=== PATIENT | female | born 1965 | race Caucasian/White ===

== ENCOUNTER → 2020-12-20 14:29 | Outpatient (CLI) | payer OTHER, SELFPAY ==
--- NOTE | ~2020-12-20 | MR_ITS ---
EXAMINATION: MR knee LT wo con DATE: 12/20/2020 15:43 INDICATION: Left knee pain. TECHNIQUE: Magnetic resonance imaging (MRI) of the left knee was performed without intravenous contra st. Sequences included axial PD-weighted FS FSE, coronal PD-weighted FSE and PD-weighted FS FSE, sagi ttal PD-weighted FSE, and sagittal T2-weighted FS FSE. COMPARISON: Left knee radiographs 09/24/2020 FINDINGS: Medial compartment: There is a radial tear of posterior horn of medial meniscus. There is partial-thickness cartilage los s of tibial condyle, deep at the central articular surface. There is partial-thickness cartilage loss of femoral condyle, deep at the central articular surface. Marginal osteophytes are noted. Lateral compartment: The lateral meniscus is normal. There is shallow partial-thickness cartilage loss of tibial condyle a nd femoral condyle. There are tiny marginal osteophytes. Patellofemoral compartment: There is deep partial thickness cartilage loss of patellar medial facet and median ridge and shallow partial-thickness cartilage loss of patellar lateral facet. There is shallow partial-thickness cartil age loss of trochlea. Osteophytes are noted. Ligaments and tendons: The anterior and posterior cruciate ligaments are normal. Medial collateral ligament demonstrates a s prain characterized by thickening and increased signal intensity proximally and surrounding edema. Th ere are changes of prior sprain of fibular collateral ligament characterized by thickening and increa sed signal intensity proximally. There is edema around medial collateral ligament. There is mild hall llar tendinopathy. Fluid: There is a small knee joint effusion. There is mild prepatellar and superficial infrapatellar bursiti s. IMPRESSION: 1. Moderate chondrosis of medial and patellofemoral compartments and mild chondrosis of lateral britney rtment. 2. Tear of medial meniscus. 3. Small knee joint effusion. 4. Grade 2 sprain of medial collateral ligament. Reviewed, dictated and finalized at location A. IMPRESSION: 1. Moderate chondrosis of medial and patellofemoral compartments and mild chond rosis of lateral compartment. 2. Tear of medial meniscus. 3. Small knee joint effusion. 4. Grade 2 sprain of medial collateral ligament.
== END ==
PROVIDERS: PCP Family Medicine; Visit Provider Orthopaedic Surgery
DX: M70.52 Other bursitis of knee, left knee (principal); S83.242A Other tear of medial meniscus, current injury, left knee, initial encounter; S83.402A Sprain of unspecified collateral ligament of left knee, initial encounter
CPT/HCPCS: 73721

== ENCOUNTER 2022-12-14 17:25 | Emergency (ER) | payer OTHER, SELFPAY ==
[2022-12-14 17:36] VITALS: BP 151/77; PULSE 127; RESP 16; TEMP 38.3; O2SAT 98
--- NOTE | 2022-12-14 17:37 | ED.URI ---
HPI - URI/Sore Throat General Chief Complaint: Upper Respiratory Infection Stated Complaint: CONGESTION/DRAINAGE/TIRED Time Seen by Provider: 12/14/22 17:37 Source: patient Mode of arrival: ambulatory Limitations: no limitations History of Present Illness HPI Narrative: patient is a 49-year-old female that presents with cough, congestion, fatigue and fever intermittently for 3 weeks. Patient has tried Mucinex with little to no relief along with 2 doses of Claritin and 1 dose of Zyrtec. Patient states she thinks she has seasonal allergies but does not take anything regularly. Patient has 2 3-year-old granddaughters that have pinkeye and sinus congestion as well. Denies any nausea, vomiting, diarrhea, sore throat, ear pain. Denies any history of asthma, COPD, pneumonia. Related Data Allergies Allergy/AdvReac Type Severity Reaction Status Date / Time meperidine Allergy Intermediate RED/HIVES/W Verified 12/14/22 17:33 ELTS codeine Allergy Mild NAUSEA AND Verified 12/14/22 17:33 VOMITING Penicillins Allergy Mild RASH Verified 12/14/22 17:33 pseudoephedrine Allergy Mild NAUSEA AND Verified 12/14/22 17:33 VOMITING LOW FAT CREAM CHEESE Allergy Mild VIOLENT Uncoded 12/14/22 17:33 REACTION THAT MIMICKED TOXIC SHOCK SYNDROME MOST PAIN MEDICATION Allergy Mild NAUSEA AND Uncoded 12/14/22 17:33 VOMITING Review of Systems Review of Systems: All systems reviewed & are unremarkable except as noted in HPI and below Constitutional: Constitutional: Denies body ache(s), Denies chills, Reports fatigue, Reports fever(s), Denies headache(s), Denies malaise and Denies weakness Eyes: Eyes: Denies blurry vision, Denies itchy eyes and Denies loss of vision ENT: Denies otalgia, Denies headache(s), Reports nasal congestion, Denies sinus pain and Denies sore throat Cardiovascular: Cardiovascular: Denies chest pain, Denies irregular heart rhythm and Denies dyspnea Respiratory: Respiratory: Reports cough and Denies dyspnea Gastrointestinal: Gastrointestinal: Denies abdominal pain, Denies diarrhea, Denies nausea and Denies vomiting Musculoskeletal: Musculoskeletal: Denies back pain, Denies myalgias and Denies arthralgias Integumentary/Breasts: Skin/Breast: Denies pruritus and Denies rash Neurologic: Denies headache(s), Denies loss of vision and Denies weakness Psychiatric: Psychiatric: Reports no additional psychiatric complaints Endocrine: Endocrine: Denies fatigue Allergic/Immunologic: Allergic/Immunologic: Denies itchy eyes PMFSH Past Medical History Medical History Allergies Anxiety Arthritis Arthritis of knee, left Ulcer Surgical History Surgical History H/O: hysterectomy Family History Family History Mother Hypertension Family history of cardiovascular disease Family history of malignant neoplasm, Onset Age: 66 Family history of coronary artery disease Grandparent Family history of cardiovascular disease Father Family history of seizure disorder, Onset Age: 66 Other Family history of malignant neoplasm of breast in first degree relative Social History Social History Smoking status: Never smoker Alcohol intake: never Living arrangements: with family Occupation/Education: retired Gender identity (if verbalized by the patient): Female Comments At time of signature, agree with nursing past medical, surgical, social and family history. There is no relevant family history pertinent to the presenting complaint. Exam Const: General: cooperative, healthy appearing, comfortable, no acute distress and well nourished Nutritional Appearance: well nourished Orientation/consciousness: patient oriented x3 Limitations: no limitations [facility]
== END 2022-12-14 18:05 | disposition home or self-care (01) ==
PROVIDERS: Emergency Provider Nurse Practitioner Family; PCP Clinical Nurse Specialist
DX: J06.9 Acute upper respiratory infection, unspecified (principal); R05.9 Cough, unspecified; M19.90 Unspecified osteoarthritis, unspecified site
CPT/HCPCS: 99213; G0463

== ENCOUNTER 2022-12-17 12:53 | Emergency (ER) | payer OTHER, SELFPAY ==
[2022-12-17 13:03] VITALS: BP 142/98; PULSE 102; RESP 18; TEMP 37.2; O2SAT 100
--- NOTE | 2022-12-17 13:50 | ED.EAR ---
HPI - Ear Problem General Chief complaint: Ear Stated complaint: Pain in ear; was here Saturday for Upper respitory i Time Seen by Provider: 12/17/22 13:45 Source: RN notes reviewed and old records reviewed Mode of arrival: ambulatory Limitations: no limitations History of Present Illness HPI Narrative: 57-year-old female who presents to [facility] with pain in the left ear since yesterday with pressure. Patient was seen in clinic on Saturday 3 days ago for URI symptoms with cough and congestion and was placed on steroid.antibiotic and also inhaler and patient reports she has been taking medication. Patient reports that she has been taking some Antihistamines also for her symptoms along with Tylenol. Patient denies any shortness of breath with respirations even and nonlabored with no tachypnea noted. MD Complaint: ear pain and other (URI symptoms and cough) Location: left ear Discharge from ear: Reports no Treatment prior to arrival: oral analgesic and other (on antibiotics) Related Data Allergies Allergy/AdvReac Type Severity Reaction Status Date / Time meperidine Allergy Intermediate RED/HIVES/W Verified 12/17/22 13:00 ELTS codeine Allergy Mild NAUSEA AND Verified 12/17/22 13:00 VOMITING Penicillins Allergy Mild RASH Verified 12/17/22 13:00 pseudoephedrine Allergy Mild NAUSEA AND Verified 12/17/22 13:00 VOMITING LOW FAT CREAM CHEESE Allergy Mild VIOLENT Uncoded 12/17/22 13:00 REACTION THAT MIMICKED TOXIC SHOCK SYNDROME MOST PAIN MEDICATION Allergy Mild NAUSEA AND Uncoded 12/17/22 13:00 VOMITING Review of Systems Review of Systems: CONSTITUTIONAL: reports malaise, chills, sweats, or fever. EYES: Denies visual changes, redness, or discharge. ENT: Reports rhinorrhea, congestion, sinus pain, left otalgia, no sore throat. CARDIOVASCULAR: Denies chest pain, palpitations, or edema. RESPIRATORY: Reports cough.? Denies dyspnea. GASTROINTESTINAL: Denies abdominal pain, nausea, vomiting, diarrhea SKIN: Denies rash or itching. MUSCULOSKELETAL: Denies myalgia. NEUROLOGIC:reports headache. All systems reviewed & are unremarkable except as noted in HPI and below PMFSH Past Medical History Medical History Allergies Anxiety Arthritis Arthritis of knee, left Ulcer Surgical History Surgical History H/O: hysterectomy Family History Family History Mother Hypertension Family history of cardiovascular disease Family history of malignant neoplasm, Onset Age: 66 Family history of coronary artery disease Grandparent Family history of cardiovascular disease Father Family history of seizure disorder, Onset Age: 66 Other Family history of malignant neoplasm of breast in first degree relative Social History Social History Smoking status: Never smoker Alcohol intake: never Living arrangements: with family Occupation/Education: retired Gender identity (if verbalized by the patient): Female Comments At time of signature, agree with nursing past medical, surgical, social and family history. There is no relevant family history pertinent to the presenting complaint Exam Narrative: GENERAL: Well-appearing, well-nourished, and in no acute distress. HEAD: Normocephalic EYES: PERRLA, conjunctivae clear ENT: Nares clear, turbinates edematous and erythematous, clear discharge. Mucous membranes moist. Left TM red and bulging with some irritation to canal, RightTM pearly levine with dull light reflex bilaterally; no tragal tenderness. Oropharynx erythematous without lesions. Tonsils not enlarged and without exudate, no drooling, no hoarseness, no trismus, uvula midline. NECK: Supple. No lymphadenopathy CHEST: Clear to au
== END 2022-12-17 14:13 | disposition home or self-care (01) ==
PROVIDERS: Emergency Provider Registered Nurse; PCP Internal Medicine
DX: H66.92 Otitis media, unspecified, left ear (principal); H60.92 Unspecified otitis externa, left ear; M19.90 Unspecified osteoarthritis, unspecified site
CPT/HCPCS: 99213; G0463

== ENCOUNTER 2023-09-27 18:00 | Emergency (ER) | payer OTHER, SELFPAY ==
[2023-09-27 18:00] VITALS: BP 138/109; PULSE 90; RESP 18; TEMP 36.9; O2SAT 98
--- NOTE | 2023-09-27 18:13 | ED.GENADULT ---
HPI - General Adult General Chief complaint: Urogenital-Female Stated complaint: Yeast Infection Symptoms Time Seen by Provider: 09/27/23 18:13 Related Data Home Medications Medication Instructions Recorded Confirmed cetirizine 10 mg capsule (Zyrtec) 10 mg PO DAILY PRN Allergy Symptoms 01/15/23 05/10/23 fluticasone propionate 50 2 spray intranasal DAILY 01/15/23 05/10/23 mcg/actuation nasal spray,suspension (Flonase Allergy Relief) Allergies Allergy/AdvReac Type Severity Reaction Status Date / Time codeine Allergy Severe NAUSEA AND Verified 05/10/23 10:31 VOMITING pseudoephedrine Allergy Severe NAUSEA AND Verified 05/10/23 10:31 VOMITING meperidine Allergy Intermediate RED/HIVES/W Verified 02/11/23 15:04 ELTS Penicillins Allergy Mild Hives Verified 05/10/23 10:31 PMFSH Past Medical History Medical History Allergies Anxiety Arthritis Arthritis of knee, left Ulcer Surgical History Surgical History H/O: hysterectomy Family History Family History Mother Hypertension Family history of cardiovascular disease Family history of malignant neoplasm, Onset Age: 66 Family history of coronary artery disease Alcoholism Asthma Cancer Diabetes mellitus Myelofibrosis Grandparent Family history of cardiovascular disease Asthma Cancer Diabetes mellitus Heart disease Father Family history of seizure disorder, Onset Age: 66 Alcoholism Other Family history of malignant neoplasm of breast in first degree relative Social History Social History Smoking status: Never smoker Alcohol intake: current Alcohol use details: rarely Substance use: never Substance use type: does not use Lack of Transportation: No Lack of Food: Never True Current Housing: I Have Housing Concerned About Future Housing: No Difficulty Paying Gas/Electric Bills: No Difficulty Paying for Meds: No Currently Unemployed: No Education: High School Diploma/GED Living arrangements: with family Occupation/Education: retired Gender identity (if verbalized by the patient): Female Spiritual care concerns: No Discharge Plan Discharge Prescriptions: No Action (DME) Aerochamber MV Spacer See Rx Instructions .Route Qty: 1 0RF Rx Instructions: As directed cholecalciferol (vitamin D3) 1,250 mcg (50,000 unit) tablet 1,250 mcg PO WEEKLY Qty: 8 0RF fluticasone propionate [Flonase Allergy Relief] 50 mcg/actuation spray,suspension 2 spray intranasal DAILY Rx Instructions: administer into each nostril Zyrtec 10 mg capsule 10 mg PO DAILY PRN (Reason: Allergy Symptoms) sodium,potassium,mag sulfates [Suprep Bowel Prep Kit] 17.5-3.13-1.6 gram recon soln See Rx Instructions PO .COMPLEX Qty: 354 0RF Rx Instructions: TAKE DIRECTED fluconazole 150 mg tablet 150 mg PO DAILY Qty: 1 0RF Rx Instructions: administer on day 1 of therapy Follow-up/Referrals: Loan Delvalle, [employer] [Primary Care Provider] -
--- NOTE | 2023-09-27 18:36 | ED.GENADULT ---
HPI - General Adult General Chief complaint: Urogenital-Female Stated complaint: Yeast Infection Symptoms Time Seen by Provider: 09/27/23 18:13 Source: patient, RN notes reviewed and old records reviewed Mode of arrival: ambulatory Limitations: no limitations History of Present Illness HPI narrative: 58-year-old female [facility] home for complaint of white creamy patches to mouth and tongue for 2 days and scant amount of vaginal discharge for 3 days. Patient reports being admitted September 16 for diverticulitis DCd on September 18. On date of discharge patient was given Diflucan for vaginal discharge/potential yeast infection. Patient endorses that during hospitalization she was given Cipro and Flagyl and has completed both. Patient endorses that she saw her PCP 3 days ago and was given Diflucan for vaginal discharge. the patient called PCP office today regarding oral and vaginal complaints and was advised to be seen in [facility] as they could not get her into their office today. Patient able to tolerate fluids by mouth. Patient reports allergy to penicillin and codeine. Related Data Home Medications Medication Instructions Recorded Confirmed cetirizine 10 mg capsule (Zyrtec) 10 mg PO DAILY PRN Allergy Symptoms 01/15/23 05/10/23 fluticasone propionate 50 2 spray intranasal DAILY 01/15/23 05/10/23 mcg/actuation nasal spray,suspension (Flonase Allergy Relief) Allergies Allergy/AdvReac Type Severity Reaction Status Date / Time codeine Allergy Severe NAUSEA AND Verified 05/10/23 10:31 VOMITING pseudoephedrine Allergy Severe NAUSEA AND Verified 05/10/23 10:31 VOMITING meperidine Allergy Intermediate RED/HIVES/W Verified 02/11/23 15:04 ELTS Penicillins Allergy Mild Hives Verified 05/10/23 10:31 Review of Systems Review of Systems: All systems reviewed & are unremarkable except as noted in HPI and below Constitutional: Constitutional: Reports no additional constitutional complaints Eyes: Eyes: Reports no additional eye complaints ENT: Reports as per HPI, Reports halitosis and Reports other (white, creamy patches to tongue and oral mucosa) Cardiovascular: Cardiovascular: Reports no additional cardiovascular complaints, Denies chest pain and Denies dyspnea Respiratory: Respiratory: Reports no additional respiratory complaints, Denies cough and Denies dyspnea Genitourinary: Genitourinary: Reports vaginal discharge Musculoskeletal: Musculoskeletal: Reports no additional musculoskeletal complaints Neurologic: Reports system reviewed and no additional complaints, except as documented Psychiatric: Psychiatric: Reports no additional psychiatric complaints PMFSH Past Medical History Medical History Allergies Anxiety Arthritis Arthritis of knee, left Ulcer Surgical History Surgical History H/O: hysterectomy Family History Family History Mother Hypertension Family history of cardiovascular disease Family history of malignant neoplasm, Onset Age: 66 Family history of coronary artery disease Alcoholism Asthma Cancer Diabetes mellitus Myelofibrosis Grandparent Family history of cardiovascular disease Asthma Cancer Diabetes mellitus Heart disease Father Family history of seizure disorder, Onset Age: 66 Alcoholism Other Family history of malignant neoplasm of breast in first degree relative Social History Social History Smoking status: Never smoker Alcohol intake: current Alcohol use details: rarely Substance use: never Substance use type: does not use Lack of Transportation: No Lack of Food: Never True Current Housing: I Have Housing Concerned About Future Housing: No Difficulty Paying Gas/Elec
== END 2023-09-27 18:40 | disposition home or self-care (01) ==
PROVIDERS: Emergency Provider Nurse Practitioner Family; PCP Clinical Nurse Specialist
DX: B37.0 Candidal stomatitis (principal); M17.12 Unilateral primary osteoarthritis, left knee
CPT/HCPCS: 99213; G0463

== ENCOUNTER 2023-10-14 08:17 | Emergency (ER) | payer OTHER, SELFPAY ==
--- NOTE | 2023-10-14 08:19 | ED.EAR ---
HPI - Ear Problem General Chief complaint: Ear Stated complaint: Earache Time Seen by Provider: 10/14/23 08:19 Source: patient Mode of arrival: ambulatory Limitations: no limitations History of Present Illness HPI Narrative: Tari is a 58-year-old female patient presenting to the clinic today with complaints of left ear pain x1 day. She reports has been having URI symptoms for the past week. Coughing up clear phlegm. Denies any fever, chills, chest pain, or shortness of breath Related Data Home Medications Medication Instructions Recorded Confirmed cetirizine 10 mg capsule (Zyrtec) 10 mg PO DAILY PRN Allergy Symptoms 01/15/23 10/14/23 fluticasone propionate 50 2 spray intranasal DAILY 01/15/23 10/14/23 mcg/actuation nasal spray,suspension (Flonase Allergy Relief) mecobalamin (vitamin B12) 500 mcg 500 mcg PO DIRECTED 10/04/23 10/14/23 chewable tablet Allergies Allergy/AdvReac Type Severity Reaction Status Date / Time codeine Allergy Severe NAUSEA AND Verified 10/04/23 08:10 VOMITING pseudoephedrine Allergy Severe NAUSEA AND Verified 10/04/23 08:10 VOMITING meperidine Allergy Intermediate RED/HIVES/W Verified 10/04/23 08:10 ELTS Penicillins Allergy Mild Hives Verified 10/04/23 08:10 Review of Systems Review of Systems: Pertinent positives per HPI. Patient denies any fever, chills, rash, headache, visual changes, dizziness, shortness of breath, chest pain, palpitations, nausea, vomiting, diarrhea, constipation, abdominal pain, or any urinary issues. [facility] Past Medical History Medical History Allergies Anxiety Arthritis Arthritis of knee, left Ulcer Surgical History Surgical History H/O: hysterectomy Family History Family History Mother Hypertension Family history of cardiovascular disease Family history of malignant neoplasm, Onset Age: 66 Family history of coronary artery disease Alcoholism Asthma Cancer Diabetes mellitus Myelofibrosis Grandparent Family history of cardiovascular disease Asthma Cancer Diabetes mellitus Heart disease Father Family history of seizure disorder, Onset Age: 66 Alcoholism Other Family history of malignant neoplasm of breast in first degree relative Social History Social History Smoking status: Never smoker Alcohol intake: current Alcohol use details: rarely Substance use: never Substance use type: does not use Lack of Transportation: No Lack of Food: Never True Current Housing: I Have Housing Concerned About Future Housing: No Difficulty Paying Gas/Electric Bills: No Difficulty Paying for Meds: No Currently Unemployed: No Education: High School Diploma/GED Living arrangements: with family Occupation/Education: retired Gender identity (if verbalized by the patient): Female Spiritual care concerns: No Comments At the time of my signature, I reviewed and agree with the nursing past medical, surgical, social, and family history. There is no relevant family history pertinent to the patient complaint. Exam Narrative: General: Well-developed, well nourished, in no apparent distress Head: Normocephalic, atraumatic Eyes: Pupils equally round and reactive to light bilaterally, EOM intact, sclera and conjunctive clear, no discharge, lids normal Ears: Right TM intact and clear, left TM intact, bulging, red, unable to visualize ossicles, ear canals clear, no drainage, grossly hearing normal. Nose: Nares patent, clear discharge, no inflammation, no sinus tenderness. Mouth: Oral pharynx without lesions or masses, good dentition, MMM. Postnasal drip Neck: Supple, trachea midline, no enlargement of anterior or posterior cervical nodes, no
[2023-10-14 08:26] VITALS: BP 147/106; PULSE 108; RESP 16; TEMP 37.3; O2SAT 97
== END 2023-10-14 08:56 | disposition home or self-care (01) ==
PROVIDERS: Emergency Provider Nurse Practitioner Family; PCP Clinical Nurse Specialist
DX: H66.3X2 Other chronic suppurative otitis media, left ear (principal); J06.9 Acute upper respiratory infection, unspecified; M19.90 Unspecified osteoarthritis, unspecified site; M17.12 Unilateral primary osteoarthritis, left knee
CPT/HCPCS: 99213; G0463

== ENCOUNTER 2023-10-16 14:39 | Outpatient (CLI) | payer OTHER, SELFPAY ==
--- NOTE | ~2023-10-16 | MM_ITS ---
EXAMINATION: MM screening [facility] BI w ingrid HISTORY: Screening mammogram TECHNIQUE: Craniocaudal and mediolateral oblique 3-D tomosynthesis images were obtained and synthetic 2-D images were generated. CAD analysis was submitted and interpreted. COMPARISON: September 20, 2016 bilateral diagnostic mammogram September 14, 2016 bilateral screening mammogram BREAST PARENCHYMAL COMPOSITION: The breasts are heterogeneously dense, which may obscure small masses . FINDINGS: Scattered bilateral benign calcifications. Possible architectural distortion is suggested in each breast.. Bilateral diagnostic mammography is r ecommended, with ultrasound if required. IMPRESSION: 1. Possible bilateral architectural distortion 2. Bilateral diagnostic mammography is recommended, with ultrasound if required BI-RADS Category 0: Incomplete: Needs additional imaging evaluation. Reviewed, dictated and finalized at location A.
== END 2023-10-16 14:40 | disposition home or self-care (01) ==
LOC: ANHIMG 14:41
PROVIDERS: PCP Clinical Nurse Specialist; Visit Provider Clinical Nurse Specialist
DX: Z12.31 Encounter for screening mammogram for malignant neoplasm of breast (principal); R92.8 Other abnormal and inconclusive findings on diagnostic imaging of breast
CPT/HCPCS: 77063; 77067

== ENCOUNTER 2023-11-08 12:21 | Outpatient (CLI) | payer OTHER, SELFPAY ==
--- NOTE | ~2023-11-08 | MMUS_ITS ---
EXAMINATION: MM diagnostic [facility] BI w ingrid, US breast BI complete HISTORY: Follow-up breast asymmetries TECHNIQUE: Additional 3-D tomosynthesis images of the breasts were performed and synthetic 2-D images were generated. CAD analysis was submitted and interpreted. High resolution complete bilateral breas t ultrasound was performed. COMPARISON: 10/16/2023 BREAST PARENCHYMAL COMPOSITION: Dense: The breasts are heterogeneously dense, which may obscure small masses FINDINGS: MAMMOGRAPHIC FINDINGS: There are no suspicious masses, calcifications or architectural distortion in either breast to sugges t malignancy. Bilateral breast asymmetries are less apparent with spot compression views. ULTRASOUND: Complete bilateral US of all 4 quadrants of the breasts and retroareolar region was reviewed. Right breast: There are mildly prominent ducts. At 9:00, 8 cm from the nipple there is an oval hypoec hoic mass measuring 5 mm with slightly irregular margins, low level internal echoes, posterior acoust ic enhancement, parallel orientation and no posterior features. No internal vascularity. Left breast: At 1:00, 11 cm from the nipple, there is a hypoechoic structure measuring 6 mm with echo genic hilum, consistent with a benign intramammary lymph node. At 1:00, 3 cm from the nipple, there i s an oval hypoechoic parallel oriented mass without posterior features or internal vascularity measur ing 8 mm. At 1:00, 2 cm from the nipple, there is an oval hypoechoic mass with parallel orientation, no posteri or features and peripheral vascularity measuring 7 mm. At 3:00, 2 cm from the nipple there are 2 kristie [address] cysts measuring 5 mm or less. There is also a 6 mm lymph node. IMPRESSION: 1. Probable benign bilateral breast masses. 2. Recommend 6 month follow-up diagnostic bilateral mammogram and bilateral breast ultrasound. BI-RADS category 3, probably benign findings. Reviewed, dictated and finalized at location A. IMPRESSION: 1. Probable benign bilateral breast masses. 2. Recommend 6 month follow-up diagnostic bilateral mammogram and bilateral glen ast ultrasound. BI-RADS category 3, probably benign findings.
== END 2023-11-08 12:22 | disposition home or self-care (01) ==
LOC: ANHIMG 12:25
PROVIDERS: PCP Clinical Nurse Specialist; Visit Provider Clinical Nurse Specialist
DX: R92.8 Other abnormal and inconclusive findings on diagnostic imaging of breast (principal)
CPT/HCPCS: 76641; 77062; 77066; G0279

== ENCOUNTER 2023-11-14 08:36 | Emergency (ER) | payer OTHER, SELFPAY ==
[2023-11-14 08:48] VITALS: BP 141/96; PULSE 115; RESP 16; TEMP 37.1; O2SAT 97
--- NOTE | 2023-11-14 08:49 | ED.URI ---
HPI - URI/Sore Throat General Chief Complaint: Upper Respiratory Infection Stated Complaint: SINUS CONGESTION/EAR/EYE REDNESS Time Seen by Provider: 11/14/23 08:49 Source: patient Mode of arrival: ambulatory Limitations: no limitations History of Present Illness HPI Narrative: 58 y/o female presented for c/o left ear pressure, scratchy eyes watery and sinus congestion with post nasal drainage and cough. Onset over one week. Reports crusted eyes the last 2 days, with clear drainage throughout the day. Took Mucinex. Also took increased dose of Zyrtec and Flonase x5 days as previously instructed by PCP if she develops allergy symptoms. Related Data Home Medications Medication Instructions Recorded Confirmed cetirizine 10 mg capsule (Zyrtec) 10 mg PO DAILY PRN Allergy Symptoms 01/15/23 11/14/23 fluticasone propionate 50 2 spray intranasal DAILY 01/15/23 11/14/23 mcg/actuation nasal spray,suspension (Flonase Allergy Relief) mecobalamin (vitamin B12) 500 mcg 500 mcg PO DIRECTED 10/04/23 11/14/23 chewable tablet Allergies Allergy/AdvReac Type Severity Reaction Status Date / Time codeine Allergy Severe NAUSEA AND Verified 11/14/23 08:45 VOMITING pseudoephedrine Allergy Severe NAUSEA AND Verified 11/14/23 08:45 VOMITING meperidine Allergy Intermediate RED/HIVES/W Verified 11/14/23 08:45 ELTS Penicillins Allergy Mild Hives Verified 11/14/23 08:45 Review of Systems Review of Systems: CONSTITUTIONAL: Denies malaise, chills, or fever. EYES: Denies visual changes, redness, or discharge. ENT: Denies sinus pain, and sore throat. Reports ear pain,rhinorrhea, congestion CARDIOVASCULAR: Denies chest pain, palpitations, or edema. RESPIRATORY: Denies dyspnea. GASTROINTESTINAL: Denies abdominal pain, nausea, vomiting, diarrhea SKIN: Denies rash or itching. MUSCULOSKELETAL: Denies myalgia. NEUROLOGIC: Denies headache. All systems reviewed & are unremarkable except as noted in HPI and below PMFSH Past Medical History Medical History Allergies Anxiety Arthritis Arthritis of knee, left Ulcer Surgical History Surgical History H/O: hysterectomy Family History Family History Mother Hypertension Family history of cardiovascular disease Family history of malignant neoplasm, Onset Age: 66 Family history of coronary artery disease Alcoholism Asthma Cancer Diabetes mellitus Myelofibrosis Grandparent Family history of cardiovascular disease Asthma Cancer Diabetes mellitus Heart disease Father Family history of seizure disorder, Onset Age: 66 Alcoholism Other Family history of malignant neoplasm of breast in first degree relative Social History Social History Smoking status: Never smoker Alcohol intake: current Alcohol use details: rarely Substance use: never Substance use type: does not use Lack of Transportation: No Lack of Food: Never True Current Housing: I Have Housing Concerned About Future Housing: No Difficulty Paying Gas/Electric Bills: No Difficulty Paying for Meds: No Currently Unemployed: No Education: High School Diploma/GED Living arrangements: with family Occupation/Education: retired Gender identity (if verbalized by the patient): Female Spiritual care concerns: No Comments At time of signature, agree with nursing past medical, surgical, social and family history. There is no relevant family history pertinent to the presenting complaint Exam Narrative: GENERAL: mildly ill-appearing, well-nourished, and in no acute distress. EYES: PERRLA, conjunctivae clear ENT: Nares clear. Mucous membranes moist. Right TM pearly levine with dull light reflex; left TM erythematous, purulent effusion, bulgi
== END 2023-11-14 09:13 | disposition home or self-care (01) ==
PROVIDERS: Emergency Provider Nurse Practitioner Family; PCP Clinical Nurse Specialist
DX: H66.92 Otitis media, unspecified, left ear (principal); J30.9 Allergic rhinitis, unspecified; M17.12 Unilateral primary osteoarthritis, left knee
CPT/HCPCS: 99213; G0463

== ENCOUNTER 2023-12-05 15:38 | Emergency (ER) | payer OTHER, SELFPAY ==
[2023-12-05 15:59] VITALS: BP 125/92; PULSE 116; RESP 16; TEMP 36.9; O2SAT 99
--- NOTE | 2023-12-05 16:05 | ED.URI ---
HPI - URI/Sore Throat General Chief Complaint: Ear Stated Complaint: Ear Pain/Sore Throat Time Seen by Provider: 12/05/23 16:05 Source: patient, RN notes reviewed and old records reviewed Mode of arrival: ambulatory Limitations: no limitations History of Present Illness HPI Narrative: 58-year-old female presents to the [facility] with complaints of left ear pain and sore throat. Patient has a history of chronic eustachian tube dysfunction as well as chronic effusions. Has had a couple of ear infections in the last few months. Patient has seen Dr. Tam ENT in the past. Reports having an appointment on 15 December Reviewed puffs medical chart Related Data Home Medications Medication Instructions Recorded Confirmed cetirizine 10 mg capsule (Zyrtec) 10 mg PO DAILY PRN Allergy Symptoms 01/15/23 12/05/23 fluticasone propionate 50 2 spray intranasal DAILY 01/15/23 12/05/23 mcg/actuation nasal spray,suspension (Flonase Allergy Relief) mecobalamin (vitamin B12) 500 mcg 500 mcg PO DIRECTED 10/04/23 12/05/23 chewable tablet Allergies Allergy/AdvReac Type Severity Reaction Status Date / Time codeine Allergy Severe NAUSEA AND Verified 12/05/23 15:58 VOMITING pseudoephedrine Allergy Severe NAUSEA AND Verified 12/05/23 15:58 VOMITING meperidine Allergy Intermediate RED/HIVES/W Verified 12/05/23 15:58 ELTS Penicillins Allergy Mild Hives Verified 12/05/23 15:58 Review of Systems Review of Systems: All systems reviewed & are unremarkable except as noted in HPI and below Constitutional: Constitutional: Reports no additional constitutional complaints Eyes: Eyes: Reports no additional eye complaints ENT: Reports as per HPI Cardiovascular: Cardiovascular: Reports no additional cardiovascular complaints, Denies chest pain and Denies dyspnea Respiratory: Respiratory: Reports no additional respiratory complaints, Denies chest congestion, Denies cough and Denies dyspnea Gastrointestinal: Gastrointestinal: Reports no additional gastrointestinal complaints, Denies abdominal pain, Denies nausea and Denies vomiting Musculoskeletal: Musculoskeletal: Reports no additional musculoskeletal complaints Integumentary/Breasts: Skin/Breast: Reports system reviewed and no additional complaints, except as docu Neurologic: Reports system reviewed and no additional complaints, except as documented Psychiatric: Psychiatric: Reports no additional psychiatric complaints Allergic/Immunologic: Allergic/Immunologic: Reports no additional allergic/immunologic complaints PMFSH Past Medical History Medical History Allergies Anxiety Arthritis Arthritis of knee, left Ulcer Surgical History Surgical History H/O: hysterectomy Family History Family History Mother Hypertension Family history of cardiovascular disease Family history of malignant neoplasm, Onset Age: 66 Family history of coronary artery disease Alcoholism Asthma Cancer Diabetes mellitus Myelofibrosis Grandparent Family history of cardiovascular disease Asthma Cancer Diabetes mellitus Heart disease Father Family history of seizure disorder, Onset Age: 66 Alcoholism Other Family history of malignant neoplasm of breast in first degree relative Social History Social History Smoking status: Never smoker Alcohol intake: current Alcohol use details: rarely Substance use: never Substance use type: does not use Lack of Transportation: No Lack of Food: Never True Current Housing: I Have Housing Concerned About Future Housing: No Difficulty Paying Gas/Electric Bills: No Difficulty Paying for Meds: No Currently Unemployed: No Education: High School Diploma/GED Living arrangements:
== END 2023-12-05 16:33 | disposition home or self-care (01) ==
PROVIDERS: Emergency Provider Nurse Practitioner; PCP Clinical Nurse Specialist
DX: R09.82 Postnasal drip (principal); J00 Acute nasopharyngitis [common cold]; H65.05 Acute serous otitis media, recurrent, left ear; M17.12 Unilateral primary osteoarthritis, left knee
CPT/HCPCS: 99211; G0463

== ENCOUNTER 2023-12-20 17:06 | Outpatient (CLI) | payer OTHER, SELFPAY ==
--- NOTE | ~2023-12-20 | CT_ITS ---
EXAMINATION: CT sinus wo con DATE: 12/20/2023 17:24 INDICATION: Recurrent sinusitis for one to 2 years TECHNIQUE: Computed tomography (CT) of the paranasal sinuses was performed without contrast. Iterativ e reconstruction technique was employed. Exam dose: 337.11 mGy-cm total exam DLP. COMPARISON: None FINDINGS: There is prominent rightward deviation of the nasal septum. There is moderate soft tissue s welling of the nasal turbinates, especially of the left middle nasal turbinate. There is opacification of maxillary ostium and infundibulum bilaterally. There is severe mucoperioste al thickening of both maxillary sinuses, patchy soft tissue thickening of the ethmoid air cells prima rily on the left. Moderately prominent mucoperiosteal thickening of the right sphenoid sinus and minimal mucoperiosteal thickening at the left sphenoid sinus. Patchy effusions of the mastoid air cells, more prominent on the left. Middle and inner ear apparatus appear unremarkable bilaterally. IMPRESSION: Prominent rightward deviation of nasal septum Moderate soft tissue swelling of the nasal turbinates, particularly left middle nasal turbinate Opacification of the maxillary ostium and infundibulum bilaterally Prominent bilateral maxillary sinus mucoperiosteal thickening Patchy soft tissue thickening of the left ethmoid air cells primarily Bilateral mucoperiosteal thickening of the sphenoid sinuses, moderate on the right, minimal on the le ft Patchy mastoid effusions, greater on the left Reviewed, dictated and finalized at [facility]. Reviewed, dictated and finalized at [facility]. IMPRESSION: Prominent rightward deviation of nasal septum Moderate soft tissue swelling of the nasal turbinates, particularly left middle nasal turbinate Opacification of the maxillary ostium and infundibulum bilaterally Prominent bilateral maxillary sinus mucoperiosteal thickening Patchy soft tissue thickening of the left ethmoid air cells primarily Bilateral mucoperiosteal thickening of the sphenoid sinuses, moderate on the ri ght, minimal on the left Patchy mastoid effusions, greater on the left
== END 2023-12-20 17:07 | disposition home or self-care (01) ==
LOC: ANHIMG 17:07
PROVIDERS: PCP Internal Medicine; Visit Provider Otolaryngology
DX: J34.2 Deviated nasal septum (principal); J34.89 Other specified disorders of nose and nasal sinuses; J01.01 Acute recurrent maxillary sinusitis; H65.492 Other chronic nonsuppurative otitis media, left ear; H92.02 Otalgia, left ear
CPT/HCPCS: 70486

== ENCOUNTER 2024-01-09 05:49 | Day surgery (SDC) | payer OTHER, SELFPAY ==
[2023-12-12 14:25] VITALS: BMI 35.9
[2024-01-02 12:03] VITALS: BMI 35.2
[2024-01-09 06:37] VITALS: BMI 34.5
--- NOTE | 2024-01-09 07:07 | PM.HPGS ---
History of Present Illness History of Present Illness Consent: Risks, benefits, and alternatives have been discussed and questions answered. Patient agrees to proceed with procedure. Chief complaint: neoplasia screening Narrative: Tari Voss is a 58 year old female presents for screening colonoscopy. Patient's current weight appetite and bowel movements are normal. She denies abdominal pain. Patient has had no bleeding. Family history noncontributory. Previous colonoscopy in 2016 revealed diverticulosis. Patient referred today for screening colonoscopy.. Patient does have a grandparent with colon cancer but no first-degree relatives with polyps nor cancer. Review of Systems Review of Systems: All systems reviewed & are unremarkable except as noted in HPI and below PMFSH Past Medical History Medical History (Updated 01/09/24 @ 07:10 by South Oliveira MD) Allergies Anxiety Arthritis Arthritis of knee, left Screening for colon cancer Ulcer Surgical History Surgical History H/O: hysterectomy Family History Family History Mother Hypertension Family history of cardiovascular disease Family history of malignant neoplasm, Onset Age: 66 Family history of coronary artery disease Alcoholism Asthma Cancer Diabetes mellitus Myelofibrosis Grandparent Family history of cardiovascular disease Asthma Cancer Diabetes mellitus Heart disease Father Family history of seizure disorder, Onset Age: 66 Alcoholism Other Family history of malignant neoplasm of breast in first degree relative Social History Social History Smoking status: Never smoker Alcohol intake: never Alcohol use details: rarely Substance use: never Substance use type: does not use Lack of Transportation: No Lack of Food: Never True Current Housing: I Have Housing Concerned About Future Housing: No Difficulty Paying Gas/Electric Bills: No Difficulty Paying for Meds: No Currently Unemployed: No Education: High School Diploma/GED Living arrangements: with family Occupation/Education: retired Gender identity (if verbalized by the patient): Female Spiritual care concerns: No Meds Home Medications and Allergies Home Medications Medication Instructions Recorded Confirmed Type cetirizine 10 mg capsule (Zyrtec) 10 mg PO DAILY PRN Allergy Symptoms 01/15/23 01/09/24 History fluticasone propionate 50 2 spray intranasal DAILY 01/15/23 01/09/24 History mcg/actuation nasal spray,suspension (Flonase Allergy Relief) cholecalciferol (vitamin D3) 1,250 1,250 mcg PO WEEKLY #8 tabs 01/28/23 01/09/24 Rx mcg (50,000 unit) tablet mecobalamin (vitamin B12) 500 mcg 500 mcg PO DIRECTED 10/04/23 01/09/24 History chewable tablet Allergies Allergy/AdvReac Type Severity Reaction Status Date / Time codeine Allergy Severe NAUSEA AND Verified 01/09/24 06:33 VOMITING pseudoephedrine Allergy Severe NAUSEA AND Verified 01/09/24 06:33 VOMITING meperidine Allergy Intermediate RED/HIVES/W Verified 01/09/24 06:33 ELTS Penicillins Allergy Mild Hives Verified 01/09/24 06:33 Exam Narrative: Physical exam reveals patient to be alert. Vital signs stable. HEENT exam is unremarkable. Patient is anicteric. Lungs are clear to auscultation and to percussion. Heart is without murmur or extra sounds. Abdomen bowel sounds are present soft nontender with no organomegaly. Digital and external rectal exam is normal. Assessment and Plan Assessment and plan (1) Screening for colon cancer: Code(s): Z12.11 - Encounter for screening for malignant neoplasm of colon Status: Acute Assessment and Plan: Patient presents today for screening colonoscopy. Further recommendations may be given after e
--- NOTE | 2024-01-09 07:16 | WPDANESEPPF ---
Anes - Initial Pre Proc Eval Procedure: Operation Date: 01/09/24 07:30 Proposed Procedures p Diagnostic Colonoscopy - South Oliveira MD Date/Time: 01/09/24 07:16 Surgeon: South Oliveira MD Pre Op Diagnosis: neoplasia screening Patient Data Age: 58 Gender: F Height: 1.63 m Weight: 91.3 kg Allergies Allergy/AdvReac Type Severity Reaction Status Date / Time codeine Allergy Severe NAUSEA AND Verified 01/09/24 06:33 VOMITING pseudoephedrine Allergy Severe NAUSEA AND Verified 01/09/24 06:33 VOMITING meperidine Allergy Intermediate RED/HIVES/W Verified 01/09/24 06:33 ELTS Penicillins Allergy Mild Hives Verified 01/09/24 06:33 Home Medications Medication Instructions Recorded Confirmed Type cetirizine 10 mg capsule (Zyrtec) 10 mg PO DAILY PRN Allergy Symptoms 01/15/23 01/09/24 History fluticasone propionate 50 2 spray intranasal DAILY 01/15/23 01/09/24 History mcg/actuation nasal spray,suspension (Flonase Allergy Relief) cholecalciferol (vitamin D3) 1,250 1,250 mcg PO WEEKLY #8 tabs 01/28/23 01/09/24 Rx mcg (50,000 unit) tablet mecobalamin (vitamin B12) 500 mcg 500 mcg PO DIRECTED 10/04/23 01/09/24 History chewable tablet Patient hx anesthesia problems: other (slow to awaken) Family hx anesthesia problems: none Results Review: All pre-operative results and documents have been reviewed as part of the pre-operative evaluation. [facility] Past Medical History Medical History Allergies Anxiety Arthritis Arthritis of knee, left Screening for colon cancer Ulcer Surgical History Surgical History H/O: hysterectomy Family History Family History Mother Hypertension Family history of cardiovascular disease Family history of malignant neoplasm, Onset Age: 66 Family history of coronary artery disease Alcoholism Asthma Cancer Diabetes mellitus Myelofibrosis Grandparent Family history of cardiovascular disease Asthma Cancer Diabetes mellitus Heart disease Father Family history of seizure disorder, Onset Age: 66 Alcoholism Other Family history of malignant neoplasm of breast in first degree relative Social History Social History Smoking status: Never smoker Alcohol intake: never Alcohol use details: rarely Substance use: never Substance use type: does not use Lack of Transportation: No Lack of Food: Never True Current Housing: I Have Housing Concerned About Future Housing: No Difficulty Paying Gas/Electric Bills: No Difficulty Paying for Meds: No Currently Unemployed: No Education: High School Diploma/GED Living arrangements: with family Occupation/Education: retired Gender identity (if verbalized by the patient): Female Spiritual care concerns: No Anes - Eval Final PreProcedure Day of Procedure 01/09/24 07:16 Patient weight: obese Heart: regular rate and rhythm Lungs: clear to auscultation Airway: Mallampati scale class II Neurological: alert and oriented Last oral intake: >/= 8 hours ASA classification: III Emergent: no Anesthetic plan: proceed Anesthesia type and monitoring: general GIVS and standard monitoring Results Review: All pre-operative results and documents have been reviewed as part of the pre-operative evaluation. Informed Consent: The patient's anesthetic plan and its attendant risks and benefits were discussed with the patient/family/POA. Questions were solicited and answers provided to the satisfaction of the patient/family/POA.
[2024-01-09] MEDS: LACTATED RINGERS 1,000 ML 150 ML IV CONT (07:19)
[2024-01-09 07:46] VITALS: BP 135/81; PULSE 80; RESP 14; O2SAT 97
[2024-01-09 07:56] VITALS: BP 127/73; PULSE 95; RESP 16; O2SAT 100
--- NOTE | 2024-01-09 08:03 | WPDANESPN ---
Anes - Prog Note Post-Op Date/Time: 01/09/24 08:03 Cardiovascular status: normal Respiratory status: normal Airway patency: baseline Mental status: baseline Post-Op hydration status: normal Vital Signs: Last Vital Signs Pulse 95 01/09/24 07:56 Resp 16 01/09/24 07:56 BP 127/73 01/09/24 07:56 Pulse Ox 100 01/09/24 07:56 O2 Del Method Room Air 01/09/24 07:56 Pain Score (VAS): 0 I/O: Intake & Output 01/08/24 01/09/24 01/09/24 23:59 07:59 15:59 Intake Total 500 Balance 500 Patient Feedback: Patient satisfied with anesthetic care.
[2024-01-09 08:06] VITALS: BP 143/88; PULSE 80; RESP 16; O2SAT 100
== END 2024-01-09 08:17 | disposition home or self-care (01) ==
PROVIDERS: PCP Internal Medicine; Visit Provider Internal Medicine Gastroenterology
PROC: 0DJD8ZZ Inspection of Lower Intestinal Tract, Via Natural or Artificial Opening Endoscopic (ICD-10-PCS; CPT 45378; principal; 2024-01-09 07:30)
DX: Z12.11 Encounter for screening for malignant neoplasm of colon (principal); K57.30 Diverticulosis of large intestine without perforation or abscess without bleeding
CPT/HCPCS: 45378

== ENCOUNTER 2024-02-07 09:02 | Outpatient (CLI) | payer OTHER, SELFPAY ==
--- NOTE | ~2024-02-07 | XR_ITS ---
AP and lateral views of the right hip Clinical history: Pain Findings: No acute fracture or dislocation is seen. Osseous alignment is anatomic. Right hip joint is preserved. Soft tissues are unremarkable. Impression: No significant abnormality is seen. Reviewed, dictated and finalized at location [facility]. Impression: No significant abnormality is seen.
--- NOTE | ~2024-02-07 | XR_ITS ---
Lumbosacral Spine: AP and lateral views Clinical History: Pain Findings: The normal lordotic curve is maintained. No fracture or subluxation seen. 6 lumbar type jaime tebral bodies are present. There is moderate to severe facet arthropathy, especially from L3 through S1. There is moderate degenerative disc narrowing at the lower lumbar spine. The sacroiliac joints ar e normally outlined. Impression: Moderate degenerative spondylosis, as above, especially the lower lumbar spine. Reviewed, dictated and finalized at location [facility]. Impression: Moderate degenerative spondylosis, as above, especially the lower lumbar spine.
== END 2024-02-07 09:03 ==
PROVIDERS: PCP Internal Medicine; Visit Provider Clinical Nurse Specialist
DX: M25.551 Pain in right hip (principal); M47.896 Other spondylosis, lumbar region
CPT/HCPCS: 72100; 73502

== ENCOUNTER 2025-01-06 08:46 | Outpatient (CLI) | payer OTHER, SELFPAY ==
--- NOTE | ~2025-01-06 | US_ITS ---
US soft tissue head and neck 01/06/2025 08:59 Indication: Localized swelling Procedure: High-resolution ultrasound of the right supraclavicular soft tissues Comparison: No prior studies for comparison. Findings: Prominent right sternoclavicular joint. No discrete solid or cystic mass identified. Impression: 1: No abnormal masses are identified in the area of palpable concern, likely attributable to prominen t sternoclavicular joint. Reviewed, dictated and finalized at location A. Impression: 1: No abnormal masses are identified in the area of palpable concern, likely at tributable to prominent sternoclavicular joint.
== END 2025-01-06 08:47 | disposition home or self-care (01) ==
PROVIDERS: PCP Internal Medicine; Visit Provider Clinical Nurse Specialist
DX: R22.1 Localized swelling, mass and lump, neck (principal)
CPT/HCPCS: 76536

== ENCOUNTER 2025-05-05 19:06 | Emergency (ER) | payer OTHER, SELFPAY ==
--- NOTE | 2025-05-05 19:07 | ED_ITS ---
HPI - General Adult General Chief complaint: Upper Respiratory Infection Stated complaint: sinus issues, sick, pink eye Time Seen by Provider: 05/05/25 19:07 Source: patient Mode of arrival: ambulatory Limitations: no limitations History of Present Illness HPI narrative: Pt is a 59 y/o female presenting with c/o URI sx. Sx began 3-4 days ago and include congestion, ear pressure, cough, with redness to R. eye beginning tonight.Reports ear pressure has improved. Describes R. eye as itchy, denies known trauma, denies contact lens use. Reports close contact with numerous grandkids with same sx. Tx initiated [employer] includes nasal saline, netti pot. No additional complaints. Related Data Home Medications ?Medication ?Instructions ?Recorded ?Confirmed ?Last Taken ?Type cetirizine 10 mg capsule (Zyrtec) 10 mg PO DAILY PRN A llergy Symptoms 01/15/23 01/06/25 01/07/24 History mecobalamin (vitamin B12) 500 mcg 500 mcg PO DIRECT ED 10/04/23 01/06/25 12/05/23 History chewable tablet lactobacillus combination no.9 4 4,000 mmu cells PO DA EDELMIRA 02/07/24 01/06/25 Unknown History billion cell capsule (Adult 50 Plus Probiotic) Allergies Allergy/AdvReac Type Severity Reaction Status Date / Time codeine Allergy Severe NAUSEA AND Verified 01/06/25 07:52 VOMITING pseudoephedrine Allergy Severe NAUSEA AND Verified 01/06/25 07:52 VOMITING meperidine Allergy Intermediate RED/HIVES/W Verified 01/06/25 07:52 ELTS Penicillins Allergy Mild Hives Verified 01/06/25 07:52 Review of Systems Review of Systems: CONSTITUTIONAL: Denies body aches, fever, chills, or sweats. EYES: reports redness to right eye.Denies visual changes or discharge. ENT: reports ear pressure congestion, Denies rhinorrhea, sore throat CARDIOVASCULAR: Denies chest pain, palpitations, or edema. RESPIRATORY: reports cough denies dyspnea. GASTROINTESTINAL: Denies abdominal pain, nausea, vomiting, or diarrhea. GENITOURINARY: Denies dysuria or hematuria. SKIN: Denies rash, itching, or wounds. MUSCULOSKELETAL: Denies back pain, joint pain, or myalgia. NEUROLOGIC: Denies headache, numbness, tingling, or weakness. PSYCH: Denies depression or anxiety. All systems reviewed & are unremarkable except as noted in HPI and below PMFSH Past Medical History Medical History (Updated 05/05/25 @ 19:44 by Werner Pickens APRN) Screening for colon cancer Arthritis of knee, left Ulcer Arthritis Anxiety Allergies Surgical History Surgical History (Updated 01/06/25 @ 07:50 by Aditi Longoria CMA) History of nasal surgery H/O: hysterectomy Family History Family History Mother Hypertension Family history of cardiovascular disease Family history of malignant neoplasm, Onset Age: 66 Family history of coronary artery disease Alcoholism Asthma Cancer Diabetes mellitus Myelofibrosis Grandparent Family history of cardiovascular disease Asthma Cancer Diabetes mellitus Heart disease Father Family history of seizure disorder, Onset Age: 66 Alcoholism Other Family history of malignant neoplasm of breast in first degree relative Social History Social History Smoking status: Never smoker Alcohol intake: never Alcohol use details: rarely Substance use: never Substance use type: does not use Do You Feel Safe in your Home?: Yes Lack of Transportation: No Lack of Food: Never True Current Housing: I Have Housing Concerned About Future Housing: No Difficulty Paying Gas/Electric Bills: No Difficulty Paying for Meds: No Currently Unemployed: No Education: High School Diploma/GED Living arrangements: with family Occupation/Education: retired Gender identity (if verbalized by the patient): Female Spiritual care concerns: No Exam Narrative: GENERAL: Well-appearing, well-nourished, obese and in no acute distress. HEAD: Normocephalic, atraumatic. EYES: EOMI. Conjunctivae mildly injected on the right with scant amount of green discharge; L. eye normal. ENT: Mucous membranes pink and moist. Nares clear. No rhinorrhea. OH noted bilaterally (L>R), TMs without erythema or perforation bilaterally. No mastoid tenderness. Throat normal. Uvula midline. Sinuses are nontender to palpation, moderate amount clear, postnasal drainage. NECK: Normal AROM. Supple. No lymphadenopathy. CHEST: No respiratory distress. Clear to auscultation. HEART: Regular rate and rhythm. No murmur appreciated. Normal peripheral pulses. EXTREMITIES: Normal range of motion. SKIN: Warm, dry, no rash. Capillary refill normal. Normal skin turgor. NEURO: No focal deficits. Alert and oriented x3. Gait steady. PSYCH: Normal affect. No signs of depression or anxiety. Course Course Level of Care: Express Care Visit Vital Signs Vital signs: Vital Signs Temperature 98.6 F 05/05/25 19:35 Pulse Rate 118 H 05/05/25 19:35 Respiratory Rate 16 05/05/25 19:35 Blood Pressure 144/96 H 05/05/25 19:35 Pulse Oximetry 98 05/05/25 19:35 Temperature 98.6 F 05/05/25 19:35 Pulse Rate 118 H 05/05/25 19:35 Respiratory Rate 16 05/05/25 19:35 Blood Pressure 144/96 H 05/05/25 19:35 Pulse Oximetry 98 05/05/25 19:35 Medical Decision Making MDM Narrative Medical decision making narrative: Discussed elevated blood pressure readings with patient and advised daily BP monitoring and f/u with PCP if persisting. declined prednisone prescription stating she does not tolerate. Encourage patient to purchase and begin using Flonase nasal spray per the package instructions. Vital Signs Vital Signs: Vital Signs Temperature 98.6 F 05/05/25 19:35 Pulse Rate 118 H 05/05/25 19:35 Respiratory Rate 16 05/05/25 19:35 Blood Pressure 144/96 H 05/05/25 19:35 Pulse Oximetry 98 05/05/25 19:35 Temperature 98.6 F 05/05/25 19:35 Pulse Rate 118 H 05/05/25 19:35 Respiratory Rate 16 05/05/25 19:35 Blood Pressure 144/96 H 05/05/25 19:35 Pulse Oximetry 98 05/05/25 19:35 Lab Data Lab results reviewed: Yes I reviewed the patient's lab results. Labs: Lab Results 05/05/25 Range/Units 19:35 POC Influenza A Ag Negative (Negative) POC Influenza B Ag Negative (Negative) POC SARS CoV-2 Ag Negative (Negative) Discharge Plan Discharge Clinical Impression: Elevated blood pressure reading in office without diagnosis of hypertension Upper respiratory infection Qualifiers: URI type: acute nasopharyngitis (common cold) Qualified Code(s): J00 - Acute nasopharyngitis [common cold] Acute conjunctivitis of right eye Qualifiers: Acute conjunctivitis type: viral Qualified Code(s): B30.9 - Viral conjunctivitis, unspecified Patient Disposition: Home Condition: Stable Instructions: Antibiotic Form, Cold Symptoms (ED) Additional Instructions: Go straight to ER should your symptoms become worse or should any new symptoms develop Patient Language: Estonian Prescriptions: New erythromycin 5 mg/gram (0.5 %) ointment 0.5 inch RIGHT EYE TID Qty: 3.5 0RF No Action mecobalamin (vitamin B12) 500 mcg tablet,chewable 500 mcg PO DIRECTED Zyrtec 10 mg capsule 10 mg PO DAILY PRN (Reason: Allergy Symptoms) Adult 50 Plus Probiotic 4 billion cell capsule 4,000 mmu cells PO DAILY Rx Instructions: administer with a meal Follow-up/Referrals: Herrera Mar DO [Primary Care Provider, Internal Medicine] - 05/06/25 Time of Disposition: 19:39
[2025-05-05 19:35] VITALS: BP 144/96; PULSE 118; RESP 16; TEMP 37; O2SAT 98
[2025-05-05 19:36] LABS: EDCOVIDSCREEN Negative (Negative); EDINFLUASCREEN Negative (Negative); EDINFLUBSCREEN Negative (Negative)
== END 2025-05-05 19:48 | disposition home or self-care (01) ==
PROVIDERS: Emergency Provider Registered Nurse; PCP Internal Medicine
DX: R03.0 Elevated blood-pressure reading, without diagnosis of hypertension (principal); J06.9 Acute upper respiratory infection, unspecified; H10.31 Unspecified acute conjunctivitis, right eye; Z20.822 Contact with and (suspected) exposure to COVID-19; M17.12 Unilateral primary osteoarthritis, left knee
CPT/HCPCS: 87426; 87804; 99213; G0463